=== PATIENT | male | born 1980 | race Caucasian/White ===

== ENCOUNTER 2017-10-02 18:27 | Emergency (ER) | payer BC | END 2017-10-02 20:19 | disposition home or self-care (01) | LOC: ER 18:27 | DX: D17.0 Benign lipomatous neoplasm of skin and subcutaneous tissue of head, face and neck (principal); Z88.0 Allergy status to penicillin | CPT/HCPCS: 99281 ==

== ENCOUNTER 2017-10-05 20:23 | Emergency (ER) | payer BC | END 2017-10-05 22:17 | disposition home or self-care (01) | LOC: ER 22:17 | DX: L72.8 Other follicular cysts of the skin and subcutaneous tissue (principal); Z88.0 Allergy status to penicillin | CPT/HCPCS: 99283 ==

== ENCOUNTER 2020-02-28 23:57 | Emergency (ER) | payer BC ==
[~2020-02-28] VITALS: Ht 180.3 cm; Wt 105.0 kg
[~2020-02-28 23:57] MED LIST: CEPH500T PO
[2020-02-29 00:57] VITALS: BP 139/85
[2020-02-29] MEDS ORDERED: SULF1TAB24 PO (01:11)
--- NOTE | 2020-02-29 01:14 | PHYS DOC ---
Past Medical History Past Medical History: No Pertinent History Past Surgical History: Other Additional Past Surgical Histo: left ankle surgery Smoking Status: Unknown if ever smoked Alcohol Use: None Drug Use: None General Adult EDM: Chief Complaint: INSECT BITE HPI: HPI: Patient is a 39 year old male presents for evaluation of insect bite on right arm. Patient states initially noticed yesterday. Today redness has increased. Area is red and warm. Located right forearm. Review of Systems: Review of Systems: Constitutional: Denies fever or chills. [] Eyes: Denies change in visual acuity. [] HENT: Denies nasal congestion or sore throat. [] Respiratory: Denies cough or shortness of breath. [] Cardiovascular: Denies chest pain or edema. [] GI: Denies abdominal pain, nausea, vomiting, bloody stools or diarrhea. [] : Denies dysuria. [] Musculoskeletal: Denies back pain or joint pain. [] Integument: positive cellulitis Neurologic: Denies headache, focal weakness or sensory changes. [] Endocrine: Denies polyuria or polydipsia. [] Lymphatic: Denies swollen glands. [] Psychiatric: Denies depression or anxiety. [] Heart Score: Risk Factors: Risk Factors: DM, Current or recent (<one month) smoker, HTN, HLP, family history of CAD, obesity. Risk Scores: Score 0 - 3: 2.5% MACE over next 6 weeks - Discharge Home Score 4 - 6: 20.3% MACE over next 6 weeks - Admit for Clinical Observation Score 7 - 10: 72.7% MACE over next 6 weeks - Early Invasive Strategies Allergies: Allergies: Allergies Coded Allergies Type Severity Reaction Last Updated Verified Penicillins Allergy Severe 10/02/17 Yes Physical Exam: PE: Constitutional: Well developed, well nourished, no acute distress, non-toxic ap pearance. [] HENT: Normocephalic, atraumatic, b Eyes: , EOMI, conjunctiva normal, Neck: Normal range of motion, no tenderness, supple, Cardiovascular:regular rate Lungs & Thorax: no respiratory distress Skin: area warmed redness right forearm, 6x6cm circular, central area raised, no fluctuant area. Extremities: no cyanosis, ROM intact, no edema. [] Neurologic: Alert and oriented X 3, normal motor function, normal sensory function, no focal deficits noted. [] Current Patient Data: Vital Signs: Vital Signs Date Time Temp Pulse Resp B/P (MAP) Pulse Ox O2 Delivery O2 Flow Rate FiO2 02/29/20 00:57 97.9 67 14 139/85 (103) 98 Room Air 97.9 EKG: EKG: [] Radiology/Procedures: Radiology/Procedures: [] Course & Med Decision Making: Course & Med Decision Making Pertinent Labs and Imaging studies reviewed. (See chart for details) []Patient states he spoke with a nurse who told him he would need steroids. Discussed with patient that I do not believe he needs steroids. Advised I do not typically prescribed steroids for cellulitis or insect bites. Patient also questions the use of benadryl. Advised patient typically rx benadryl for associated itch. Advised him he may use benadryl if his arm becomes itchy. Advised patient plan of antiboitics. No area at this time to I/D--- non fluctuant area without open wounds or drainage. Lolly Disclaimer: Lolly Disclaimer: This electronic medical record was generated, in whole or in part, using a voice recognition dictation system. Departure Departure Impression: Primary Impression: Cellulitis Additional Impression: Insect bite Disposition: 01 HOME, SELF-CARE Condition: STABLE Referrals: UNKNOWN PCP NAME (PCP) Patient Instructions: Cellulitis, Insect Bite Scripts Sulfamethoxazole/Trimethoprim (BACTRIM DS TABLET) 1 Each Tablet 1 TAB PO BID for 10 Days, #20 TAB 0 Refills Prov: CANDACE BOYLE DO 02/29/20 Justicifation of Admission Dx: Justifications for Admission: Justification of Admission Dx: N/A CANDACE BOYLE DO Feb 29, 2020 01:14
[2020-02-29] MEDS ORDERED: SMZ/TMP 800/160MG TABLET. PO ONE (01:15)
== END 2020-02-29 01:25 | disposition home or self-care (01) ==
LOC: ER 23:57
DX: S50.861A Insect bite (nonvenomous) of right forearm, initial encounter (principal); L03.113 Cellulitis of right upper limb; Z88.0 Allergy status to penicillin; W57.XXXA Bitten or stung by nonvenomous insect and other nonvenomous arthropods, initial encounter; Y93.89 Activity, other specified; Y92.89 Other specified places as the place of occurrence of the external cause; Y99.8 Other external cause status
CPT/HCPCS: 99283